=== PATIENT | male | born 1950 | race Caucasian/White ===

== ENCOUNTER 2021-08-05 05:03 | Emergency (ER) | payer MEDICARE, SELFPAY ==
[2021-08-05] VITALS (9 sets, daily range): BP systolic 129–138; BP diastolic 74–84; PULSE 57–67; RESP 7–17; TEMP 36.1; O2SAT 98–100
--- NOTE | ~2021-08-05 | XR_ITS ---
XR chest 2V 08/05/2021 06:37 Indication: Chest pain Procedure: 2 view chest Comparison: 09/10/2003 Findings: Heart size normal. No focal air space disease, pulmonary edema, pleural effusion or suspect ed pneumothorax. No acute osseous abnormality. There are surgical changes in the right humeral head. There are healed left rib fractures. Impression: 1: No acute cardiopulmonary disease. Reviewed, dictated and finalized at location A. Impression: 1: No acute cardiopulmonary disease.
--- NOTE | 2021-08-05 05:05 | ECG_ITS ---
Measurements Intervals [place] Rate: 61 P: 63 FL: 173 QRS: -17 QRSD: 97 T: 57 QT: 391 QTc: 395 Interpretive Statements SINUS RHYTHM WITH OCCASIONAL SUPRAVENTRICULAR PREMATURE COMPLEXES POSSIBLE RIGHT VENTRICULAR CONDUCTION DELAY [RSR (QR) IN V1/V2] LEFTWARD AXIS ABNORMAL ECG NO PREVIOUS ECG AVAILABLE FOR COMPARISON Electronically Signed On 08-05-2021 11:07:34 CDT by Jason Deleon M.D.
[2021-08-05 05:23] LABS: Basophils Absolute Auto 0.1 K/mm3 (0.0-0.1); Basophils Percent Auto 1.2 % (0.2-1.2); Eosinophils Absolute Auto 0.2 K/mm3 (0-0.3); Eosinophils Percent Auto 3.1 % (0-4.4); Hematocrit 39.1 % (42.0-52.0); Hemoglobin 13.4 g/dL (14.0-18.0); Immature Granulocyte Absolute 0.04 K/mm3 (0.00-0.031); Immature Granulocyte Percent A 0.6 % (0-0.5); Lymphocytes Absolute Auto 1.42 K/mm3 (0.9-3.2); Lymphocytes Percent Auto 21.7 % (18.3-44.2); Mean Corpuscular HGB Conc 34.3 g/dl (32-36); Mean Corpuscular Hemoglobin 32.8 pg (26-34); Mean Corpuscular Volume 95.8 fl (80-100); Mean Platelet Volume 9.2 fl (7.4-10.4); Monocytes Absolute Auto 0.7 K/mm3 (0.1-0.6); Neutrophils Absolute Auto 4.1 K/mm3 (1.3-6.7); Neutrophils Percent Auto 63.4 % (45.5-73.1); Platelet Count Result 266 k/mm3 (150-375); Red Blood Count 4.08 M/mm3 (4.6-6.20); Red Cell Distribution Width 12.3 % (11.5-14.5); White Blood Count 6.5 K/mm3 (4.5-10.0)
[2021-08-05 05:32] LABS: Alanine Aminotransferase 17 U/L (6-50); Alkaline Phosphatase 80 U/L (38-126); Anion Gap 4 mmol/L (8-16); Aspartate Amino Transferase 27 U/L (17-59); Bilirubin,Total 0.2 mg/dL (0.2-1.3); Blood Urea Nitrogen 10 mg/dL (9-20); Calcium 8.8 mg/dL (8.4-10.2); Carbon Dioxide 29 mmol/L (22-30); Chloride 96 mmol/L (98-107); Estimated CRCL calculation 61 ml/min; Estimated Glomerular Filt Rate > 60; Glucose 107 mg/dL (65-110); Lipase 79 U/L (23-300); Potassium 4.4 mmol/L (3.4-5.0); Sodium 129 mmol/L (137-145)
[2021-08-05 05:33] LABS: INR 0.9; Prothrombin Time 11.7 Seconds (11.1-14.7)
[2021-08-05 05:34] LABS: Partial Thromboplastin Time 26.6 SECONDS (22.3-36.8)
--- NOTE | 2021-08-05 05:37 | ED.CHESTPAIN ---
HPI - Chest Pain General Chief Complaint: Chest Pain <Philip Cid MD - Last Filed: 08/05/21 08:08> Stated Complaint: Chest pain <Philip Cid MD - Last Filed: 08/05/21 08:08> Time Seen by Provider: 08/05/21 05:10 <Philip Cid MD - Last Filed: 08/05/21 08:08> Source: patient <Philip Cid MD - Last Filed: 08/05/21 08:08> History of Present Illness HPI narrative: Patient presents with left-sided chest pain that woke him up from sleep. Symptoms started around 230 or 3 AM. Pain is sharp, constant, radiates to his arm worse with palpation of the area. He has not noted any association with physical activity or position. Denies pleuritic nature to his pain. He thinks maybe feels a little bit short of breath with this. Reports initially he felt sweaty with his pain but this resolved denies any current diaphoresis. Denies any nausea vomiting diarrhea. Reports he had a mild cough at the onset of his symptoms. Denies any recent fevers or sick contacts. Reports has had a similar event previously that resolved on its own but was never evaluated for it. This episode was lasting longer than usual so he came to the ER for further evaluation. <Philip Cid MD - Last Filed: 08/05/21 08:08> Related Data Home Medications: Home Medications Medication Instructions Recorded Confirmed cyclobenzaprine 10 mg tablet 10 mg PO BID 08/05/21 indomethacin 50 mg capsule 50 mg PO TID 08/05/21 <Philip Cid MD - Last Filed: 08/05/21 08:08> Allergies/Adverse Reactions: Allergies Allergy/AdvReac Type Severity Reaction Status Date / Time No Known Allergies Allergy Verified 08/05/21 05:13 <Philip Cid MD - Last Filed: 08/05/21 08:08> Review of Systems Review of Systems: CONSTITUTIONAL: Denies fever, chills, or sweats. EYES: Denies visual changes, redness, or discharge. ENT: Denies rhinorrhea, congestion, sore throat, or otalgia. CARDIOVASCULAR: Denies , palpitations, or edema. RESPIRATORY: Cough and shortness of breath GASTROINTESTINAL: Denies abdominal pain, nausea, vomiting, or diarrhea. GENITOURINARY: Denies dysuria or hematuria. SKIN: Denies rash or itching. MUSCULOSKELETAL: Denies back pain, joint pain, or myalgia. NEUROLOGIC: Denies headache, numbness, dizziness, or weakness. PSYCHIATRIC: Denies anxiety or depression. <Philip Cid MD - Last Filed: 08/05/21 08:08> All systems reviewed & are unremarkable except as noted in HPI and below <Philip Cid MD - Last Filed: 08/05/21 08:08> PMFSH Family History Family History: Family History Mother Family history of emphysema <Philip Cid MD - Last Filed: 08/05/21 08:08> Social History Social History: Social History Alcohol intake: current <Philip Cid MD - Last Filed: 08/05/21 08:08> Exam Narrative: GENERAL: Well-appearing, well-nourished, and in no acute distress. HEAD: Normocephalic, atraumatic. EYES: PERRLA and EOMI. ENT: Nares clear, no rhinorrhea or epistaxis. Mucous membranes moist. NECK: Supple. No masses. No JVD CHEST: Clear to auscultation. No respiratory distress. No wheezes rales or rhonchi tenderness palpation of the left chest HEART: Regular rate and rhythm. No murmur heard. Normal peripheral pulses. ABDOMEN: Soft, nontender, nondistended, normal active bowel sounds. EXTREMITIES: Normal range of motion. No edema. SKIN: Warm, dry, no rash. NEURO: No focal deficits. Alert and oriented x3. PSYCH: Normal mood and affect. <Philip Cid MD - Last Filed: 08/05/21 08:08> Course Reevaluation(s) Reevaluation #1: Patient signed out to Dr. Hagen pending delta troponin. Patient is low risk by a heart score is work-up thus far is reassuring. Delta troponin is negative he would be appropriate for continued outpatient monitoring with his prima
[2021-08-05 05:43] LABS: Troponin I < 0.012 ng/mL (0.000-0.034)
--- NOTE | 2021-08-05 06:18 | PC.NURSE ---
Called main lab to add on d-dimer. Spoke with Madeline, who will add it on.
[2021-08-05 08:23] LABS: Troponin I < 0.012 ng/mL (0.000-0.034)
== END 2021-08-05 08:40 | disposition home or self-care (01) ==
PROVIDERS: Emergency Medicine; Emergency Provider General Practice
DX: R07.89 Other chest pain (principal); I49.1 Atrial premature depolarization; R94.31 Abnormal electrocardiogram [ECG] [EKG]
CPT/HCPCS: 36415; 71046; 80053; 83690; 84484; 85025; 85380; 85610; 85730; 93005; 99284